=== PATIENT | female | born 1990 | race Caucasian/White ===

== ENCOUNTER 2019-03-13 11:53 | Emergency (ER) | payer OTHER ==
[~2019-03-13] VITALS: Ht 170.2 cm; Wt 108.9 kg
[2019-03-13 12:02] VITALS: Ht 170.2 cm; Wt 108.9 kg
[2019-03-13 13:23] LABS: CARBON DIOXIDE 24.2 mmol/L (21-32); CHLORIDE SERUM 99 mmol/L (98-107); CREATININE SERUM 0.9 mg/dL (0.6-1.0); GFR1 > 60 mL/min; GLUCOSE SERUM 307 mg/dL (74-106); POTASSIUM SERUM 3.4 mmol/L (3.5-5.1); SODIUM SERUM 136 mmol/L (136-145)
[2019-03-13 13:24] LABS: BASOPHIL % 0.1 % (0-2); PLATELET COUNT 260 x10^3mcL (130-400); RED CELL DISTRIBUTION WIDTH 12.7 % (11.5-14.5)
[2019-03-13 13:28] LABS: ALBUMIN 3.5 g/dL (3.4-5.0); ALKALINE PHOSPHATASE 72 U/L (46-116); ALT/SGPT 37 U/L (14-59); BILIRUBIN TOTAL 0.4 mg/dL (0.20-1.00); LIPASE 113 IU/L (73-393); TOTAL PROTEIN, SERUM 7.6 g/dL (6.4-8.2)
[2019-03-13 15:17] LABS: AST/SGOT 37 U/L (15-37)
[2019-03-13 16:32] VITALS: BP 136/86
== END 2019-03-13 18:20 | disposition home or self-care (01) ==
LOC: ED 11:53
PROVIDERS: Emergency Medicine
DX: R10.13 Epigastric pain (principal); R11.2 Nausea with vomiting, unspecified; J44.9 Chronic obstructive pulmonary disease, unspecified; I11.0 Hypertensive heart disease with heart failure; I50.9 Heart failure, unspecified; Z90.89 Acquired absence of other organs; Z98.890 Other specified postprocedural states
CPT/HCPCS: J2270; J2405

== ENCOUNTER 2019-08-16 13:28 | Emergency (ER) | payer OTHER ==
[~2019-08-16] VITALS: Ht 170.2 cm; Wt 108.9 kg
[2019-08-16 13:40] VITALS: Ht 170.2 cm; Wt 108.9 kg
[2019-08-16 14:09] LABS: BASOPHIL % 0.5 % (0-2); PLATELET COUNT 271 x10^3mcL (130-400); RED CELL DISTRIBUTION WIDTH 13.1 % (11.5-14.5)
[2019-08-16 14:27] LABS: ALBUMIN 3.9 g/dL (3.4-5.0); ALKALINE PHOSPHATASE 90 U/L (46-116); ALT/SGPT 30 U/L (14-59); AST/SGOT 11 U/L (15-37); BILIRUBIN TOTAL 0.6 mg/dL (0.20-1.00); CALCIUM 9.1 mg/dL (8.5-10.1); CARBON DIOXIDE 19.1 mmol/L (21-32); CHLORIDE SERUM 98 mmol/L (98-107); CREATININE SERUM 0.7 mg/dL (0.6-1.0); GFR1 > 60 mL/min; GLUCOSE SERUM 361 mg/dL (74-106); LIPASE 98 IU/L (73-393); POTASSIUM SERUM 3.7 mmol/L (3.5-5.1); SODIUM SERUM 134 mmol/L (136-145); TOTAL PROTEIN, SERUM 7.9 g/dL (6.4-8.2)
[2019-08-16 16:55] VITALS: BP 150/93
== END 2019-08-16 16:55 | disposition home or self-care (01) ==
LOC: ED 13:28
PROVIDERS: Emergency Medicine
DX: K29.70 Gastritis, unspecified, without bleeding (principal); I10 Essential (primary) hypertension; E11.9 Type 2 diabetes mellitus without complications; Z88.5 Allergy status to narcotic agent; Z88.6 Allergy status to analgesic agent
CPT/HCPCS: J0780; J2270; J2405; J7030; Q0092

== ENCOUNTER 2019-09-19 13:04 | Emergency (ER) | payer OTHER ==
[~2019-09-19] VITALS: Ht 170.2 cm; Wt 96.6 kg
[2019-09-19 13:14] VITALS: Ht 170.2 cm; Wt 96.6 kg
[2019-09-19 13:50] LABS: BASOPHIL % 0.9 % (0-2); PLATELET COUNT 288 x10^3mcL (130-400); RED CELL DISTRIBUTION WIDTH 12.9 % (11.5-14.5)
[2019-09-19 14:23] LABS: UA SPECIFIC GRAVITY >=1.030 (1.005-1.035); microscopic required? YES; urine erythrocyte NEGATIVE (NEGATIVE)
[2019-09-19 14:24] LABS: CALCIUM 9.1 mg/dL (8.5-10.1); CARBON DIOXIDE 28.5 mmol/L (21-32); CHLORIDE SERUM 98 mmol/L (98-107); CREATININE SERUM 0.7 mg/dL (0.6-1.0); GFR1 > 60 mL/min; GLUCOSE SERUM 206 mg/dL (74-106); POTASSIUM SERUM 3.5 mmol/L (3.5-5.1); SODIUM SERUM 136 mmol/L (136-145)
[2019-09-19 14:28] LABS: ALKALINE PHOSPHATASE 76 U/L (46-116); ALT/SGPT 36 U/L (14-59); AST/SGOT 18 U/L (15-37); LIPASE 65 IU/L (73-393); TOTAL PROTEIN, SERUM 7.7 g/dL (6.4-8.2)
[2019-09-19 14:34] LABS: ALBUMIN 3.1 g/dL (3.4-5.0)
[2019-09-19 16:00] VITALS: BP 123/59
== END 2019-09-19 16:00 | disposition home or self-care (01) ==
LOC: ED 13:04
PROVIDERS: Emergency Medicine
DX: R10.11 Right upper quadrant pain (principal); R19.7 Diarrhea, unspecified; K76.0 Fatty (change of) liver, not elsewhere classified; J45.909 Unspecified asthma, uncomplicated; I10 Essential (primary) hypertension; F12.10 Cannabis abuse, uncomplicated; E66.01 Morbid (severe) obesity due to excess calories; Z68.33 Body mass index [BMI] 33.0-33.9, adult; Z88.6 Allergy status to analgesic agent; Z88.5 Allergy status to narcotic agent
CPT/HCPCS: J7030

== ENCOUNTER 2019-11-20 10:56 | Emergency (ER) | payer OTHER ==
[~2019-11-20] VITALS: Ht 170.2 cm; Wt 109.3 kg
[2019-11-20 11:02] VITALS: Ht 170.2 cm; Wt 109.3 kg
[2019-11-20 11:56] LABS: BASOPHIL % 0.2 % (0-2); PLATELET COUNT 336 x10^3mcL (130-400); RED CELL DISTRIBUTION WIDTH 14.5 % (11.5-14.5)
[2019-11-20 12:08] LABS: CALCIUM 8.6 mg/dL (8.5-10.1); CHLORIDE SERUM 97 mmol/L (98-107); CREATININE SERUM 0.8 mg/dL (0.6-1.0); GFR1 > 60 mL/min; GLUCOSE SERUM 292 mg/dL (74-106); POTASSIUM SERUM 3.2 mmol/L (3.5-5.1); SODIUM SERUM 134 mmol/L (136-145)
[2019-11-20 12:12] LABS: ALBUMIN 3.7 g/dL (3.4-5.0); ALKALINE PHOSPHATASE 76 U/L (46-116); ALT/SGPT 29 U/L (14-59); AST/SGOT 14 U/L (15-37); BILIRUBIN TOTAL 0.41 mg/dL (0.20-1.00); LIPASE 204 IU/L (73-393); TOTAL PROTEIN, SERUM 8.1 g/dL (6.4-8.2)
[2019-11-20 14:23] VITALS: BP 172/101
== END 2019-11-20 14:23 | disposition home or self-care (01) ==
LOC: ED 10:56
PROVIDERS: Emergency Medicine
DX: R10.11 Right upper quadrant pain (principal); E11.9 Type 2 diabetes mellitus without complications; I10 Essential (primary) hypertension; Z88.6 Allergy status to analgesic agent; Z88.5 Allergy status to narcotic agent
CPT/HCPCS: J1885; J2405; J3010; J7030; Q0092

== ENCOUNTER 2020-01-05 03:45 | Emergency (ER) | payer OTHER ==
[~2020-01-05] VITALS: Ht 170.2 cm; Wt 97.5 kg
[2020-01-05 04:14] VITALS: Ht 170.2 cm; Wt 97.5 kg
[2020-01-05 04:55] LABS: BASOPHIL % 0.6 % (0-2); PLATELET COUNT 331 x10^3mcL (130-400)
[2020-01-05 05:06] LABS: RED CELL DISTRIBUTION WIDTH 14.6 % (11.5-14.5)
[2020-01-05 05:25] LABS: CALCIUM 8.9 mg/dL (8.5-10.1); CARBON DIOXIDE 26.2 mmol/L (21-32); CHLORIDE SERUM 101 mmol/L (98-107); CREATININE SERUM 0.7 mg/dL (0.6-1.0); GFR1 > 60 mL/min; GLUCOSE SERUM 273 mg/dL (74-106); POTASSIUM SERUM 3.5 mmol/L (3.5-5.1); SODIUM SERUM 131 mmol/L (136-145)
[2020-01-05 05:29] LABS: ALBUMIN 3.6 g/dL (3.4-5.0); ALKALINE PHOSPHATASE 79 U/L (46-116); ALT/SGPT 25 U/L (14-59); AMYLASE 60 U/L (25-115); AST/SGOT 10 U/L (15-37); BILIRUBIN TOTAL 0.47 mg/dL (0.20-1.00); LIPASE 115 IU/L (73-393); TOTAL PROTEIN, SERUM 7.6 g/dL (6.4-8.2)
[2020-01-05 07:46] VITALS: BP 150/79
== END 2020-01-05 07:46 | disposition home or self-care (01) ==
LOC: ED 03:45
PROVIDERS: Emergency Medicine
DX: K21.9 Gastro-esophageal reflux disease without esophagitis (principal); I10 Essential (primary) hypertension; E11.9 Type 2 diabetes mellitus without complications; Z88.6 Allergy status to analgesic agent; Z88.5 Allergy status to narcotic agent
CPT/HCPCS: C9113; J2270; J2405; J2765; J3490

== ENCOUNTER 2020-03-16 02:44 | Emergency (ER) | payer OTHER ==
[~2020-03-16] VITALS: Ht 170.2 cm; Wt 108.9 kg
[2020-03-16 02:48] VITALS: Ht 170.2 cm; Wt 108.9 kg
[2020-03-16 05:34] LABS: CALCIUM 9.7 mg/dL (8.5-10.1); CARBON DIOXIDE 28.2 mmol/L (21-32); CHLORIDE SERUM 89 mmol/L (98-107); CREATININE SERUM 0.9 mg/dL (0.6-1.0); GFR1 > 60 mL/min; GLUCOSE SERUM 351 mg/dL (74-106); POTASSIUM SERUM 3.4 mmol/L (3.5-5.1); SODIUM SERUM 130 mmol/L (136-145)
[2020-03-16 05:39] LABS: ALBUMIN 4.2 g/dL (3.4-5.0); ALKALINE PHOSPHATASE 88 U/L (46-116); ALT/SGPT 31 U/L (14-59); AST/SGOT 17 U/L (15-37); BILIRUBIN TOTAL 0.7 mg/dL (0.20-1.00); LIPASE 102 IU/L (73-393)
[2020-03-16 05:40] LABS: TOTAL PROTEIN, SERUM 9.6 g/dL (6.4-8.2)
[2020-03-16 05:46] LABS: BASOPHIL % 0.6 % (0.2-1.3); PLATELET COUNT 310 x10^3mcL (179-408); RED CELL DISTRIBUTION WIDTH 13.6 % (12.3-17.7)
[2020-03-16 07:57] LABS: UA SPECIFIC GRAVITY >=1.030 (1.005-1.035); microscopic required? YES; urine erythrocyte NEGATIVE (NEGATIVE)
[2020-03-16 10:50] VITALS: BP 190/113
== END 2020-03-16 10:50 | disposition home or self-care (01) ==
LOC: ED 02:44
PROVIDERS: Emergency Medicine
DX: R11.2 Nausea with vomiting, unspecified (principal); R10.13 Epigastric pain; I10 Essential (primary) hypertension; E11.9 Type 2 diabetes mellitus without complications; Z91.040 Latex allergy status
CPT/HCPCS: 82962; J2405; J2765; J7030